=== PATIENT | male | born 1965 | race Native Hawaiian/Other Pacific Islander ===

== ENCOUNTER 2016-09-19 12:54 | Outpatient (CLI) | payer OTHER ==
[~2016-09-19 12:54] MED LIST: ACET7.5T70 PO; ALBU90AE13 INH; ATIVAN1 MG PO; CELEXA10 MG PO; CEPH500C20 PO; CYCL10TA35 PO; CYCLOBENZAPR7.5 MG PO; DICL1GEL2 TOP; GABA300C2 PO; KETOROLAC15 MG/ML IJ; LORA1TAB17 PO; METHYLPR SS125 MG IJ; OMEPRAZOLE20 M1 PO; PEPCID40 MG OR; PERCOCET1 TA4 PO; PRILOSEC40 MG PO; SEROQUEL XR150 MG PO; SUCR1TAB35 PO; TEGRETOL200 MG PO; TEMA15CA19 PO; Z-PAK PO
== END 2016-09-19 20:07 | disposition home or self-care (01) ==
LOC: CT 12:54
DX: M26.629 Arthralgia of temporomandibular joint, unspecified side (principal)

== ENCOUNTER 2020-04-23 21:19 | Emergency (ER) | payer OTHER ==
[~2020-04-23] VITALS: Ht 162.6 cm; Wt 51.7 kg
[2020-04-23 21:19] VITALS: BP 70/46; TEMP 99.5
== END 2020-04-23 21:44 | disposition home or self-care (01) ==
LOC: ED 21:19
DX: J44.1 Chronic obstructive pulmonary disease with (acute) exacerbation (principal); F17.210 Nicotine dependence, cigarettes, uncomplicated
CPT/HCPCS: 99283

== ENCOUNTER 2021-02-21 14:48 | Emergency (ER) | payer OTHER ==
[~2021-02-21] VITALS: Ht 162.6 cm; Wt 51.7 kg
[2021-02-21 14:48] VITALS: TEMP 98.1
[2021-02-21 16:22] VITALS: BP 104/65
== END 2021-02-21 16:22 | disposition home or self-care (01) ==
LOC: ED 14:48
PROC: 0HQ1XZZ Repair Face Skin, External Approach (ICD-10-PCS; principal; 2021-02-21)
DX: S01.82XA Laceration with foreign body of other part of head, initial encounter (principal); S06.0X0A Concussion without loss of consciousness, initial encounter; S13.4XXA Sprain of ligaments of cervical spine, initial encounter; S00.01XA Abrasion of scalp, initial encounter; S01.311A Laceration without foreign body of right ear, initial encounter; R56.9 Unspecified convulsions; Z91.14 Patient's other noncompliance with medication regimen; W20.8XXA Other cause of strike by thrown, projected or falling object, initial encounter; Y92.89 Other specified places as the place of occurrence of the external cause
CPT/HCPCS: 99283

== ENCOUNTER 2021-03-08 08:47 | Emergency (ER) | payer OTHER ==
[~2021-03-08] VITALS: Ht 162.6 cm; Wt 51.7 kg
[2021-03-08 08:57] VITALS: BP 117/73; TEMP 97
== END 2021-03-08 09:31 | disposition home or self-care (01) ==
LOC: ED 08:47
DX: Z48.02 Encounter for removal of sutures (principal); S01.81XD Laceration without foreign body of other part of head, subsequent encounter; W20.8XXD Other cause of strike by thrown, projected or falling object, subsequent encounter; Y92.89 Other specified places as the place of occurrence of the external cause

== ENCOUNTER 2022-09-30 23:01 | Emergency (ER) | payer OTHER ==
[~2022-09-30] VITALS: Ht 162.6 cm; Wt 51.3 kg
[2022-09-30 23:57] LABS: POTASSIUM 3.7 mmol/L (3.6-5.2)
[2022-10-01 00:49] LABS: PLATELET COUNT 241 K/uL (142-355)
[2022-10-01 04:05] VITALS: BP 89/53; TEMP 98.3
== END 2022-10-01 04:05 | disposition home or self-care (01) ==
LOC: ED 23:01
PROVIDERS: Family Medicine
DX: L03.116 Cellulitis of left lower limb (principal); I95.9 Hypotension, unspecified; E86.0 Dehydration; I10 Essential (primary) hypertension; J44.9 Chronic obstructive pulmonary disease, unspecified; G40.909 Epilepsy, unspecified, not intractable, without status epilepticus; K21.9 Gastro-esophageal reflux disease without esophagitis
CPT/HCPCS: 36415; 80053; 83605; 85027; 85379; 96361; 96365; 96367; 96375; 99284; J0696; J1885; J2930